=== PATIENT | female | born 1950 | race Caucasian/White ===

== ENCOUNTER 2017-03-12 10:20 | Day surgery (SDC) | payer MEDICARE ==
[2017-03-10 14:16] LABS: ASPARTATE AMINO TRANSFERASE 15 U/L (15-37); BLOOD UREA NITROGEN 15 mg/dL (7-18)
[~2017-03-12] VITALS: Ht 165.1 cm; Wt 150.4 kg
[~2017-03-12 10:20] MED LIST: FLUO10TA PO; LEVO88TA4 PO; LISI-170 PO
[2017-03-12] MEDS ORDERED: LACTATED RINGERS 1,000 ML IV SCH (10:57)
[2017-03-12 11:08] VITALS: BP 170/63
[2017-03-12] MEDS ORDERED: FENTANYL PF 100 MCG/2ML ONE (11:54)
[2017-03-12] MEDS ORDERED: MIDAZOLAM 1 MG/ML, 2ML ONE (11:54)
[2017-03-12] MEDS ORDERED: OXYcodone 5 MG/5 ML ORAL.SOL UDC PO PRN (12:30)
[2017-03-12] MEDS ORDERED: PROMETHAZINE 25 MG/ML, 1ML IV PRN (12:30)
[2017-03-12] MEDS ORDERED: hydrALAzine 20 MG/ML, 1ML IV PRN (12:30)
[2017-03-12] MEDS ORDERED: ONDANSETRON 2MG/ML, 2ML IVPush PRN (12:30)
[2017-03-12] MEDS ORDERED: LABETALOL 5MG/ML, 20ML IV PRN (12:30)
[2017-03-12] MEDS ORDERED: FENTANYL PF 100 MCG/2ML IV PRN (12:30)
[2017-03-12] MEDS ORDERED: ACETAMINOPHEN 325 MG TABLET PO PRN (12:30)
[2017-03-12] MEDS ORDERED: HYDROmorphone 1 MG/ML, 1ML IV PRN (12:30)
[2017-03-12] MEDS ORDERED: ONDANSETRON 2MG/ML, 2ML ONE (12:40)
== END 2017-03-12 14:25 ==
LOC: OUT 10:20
PROVIDERS: ATTEND Internal Medicine
DX: K62.5 Hemorrhage of anus and rectum (principal); I10 Essential (primary) hypertension; E03.9 Hypothyroidism, unspecified; G47.33 Obstructive sleep apnea (adult) (pediatric); E66.01 Morbid (severe) obesity due to excess calories; Z68.43 Body mass index [BMI] 50.0-59.9, adult; Z87.39 Personal history of other diseases of the musculoskeletal system and connective tissue
CPT/HCPCS: 36415; 45378; 80053; 93005; J2250; J2405; J3010; J7120

== ENCOUNTER 2019-09-08 07:56 | Day surgery (SDC) | payer MEDICARE | END 2019-09-08 09:20 | disposition home or self-care (01) | LOC: OUT 07:56 | PROVIDERS: ATTEND Obstetrics & Gynecology | DX: Z01.818 Encounter for other preprocedural examination (principal); Z11.59 Encounter for screening for other viral diseases; N95.0 Postmenopausal bleeding | CPT/HCPCS: 93005; U0001 ==

== ENCOUNTER 2019-09-13 05:19 | Day surgery (SDC) | payer MEDICARE ==
[~2019-09-13] VITALS: Ht 165.1 cm; Wt 159.4 kg
[2019-09-13] MEDS ORDERED: METOPROLOL ER PO (05:41)
[2019-09-13] MEDS ORDERED: LISI1TAB19 PO (05:41)
[2019-09-13] MEDS ORDERED: LACTATED RINGERS 1,000 ML IV SCH (05:57)
[2019-09-13 05:59] VITALS: BP 143/86
[2019-09-13] MEDS ORDERED: LIDOCAINE-MPF 1%, 2ML INFIL ONE (06:00)
[2019-09-13] MEDS ORDERED: CHLORHEXIDINE 15 ML UDC MM ONE (06:00)
[2019-09-13] MEDS ORDERED: LIDOCAINE-MPF 1%, 2ML ONE (06:01)
[2019-09-13] MEDS ORDERED: CHLORHEXIDINE 15 ML UDC ONE (06:02)
[2019-09-13] MEDS ORDERED: OXYTOCIN 10 UNITS/ML, 1ML ONE (06:07)
[2019-09-13] MEDS ORDERED: MISOPROSTOL 200 MCG TABLET ONE (06:07)
[2019-09-13] MEDS ORDERED: METHYLERGONOVINE 0.2 MG/ML IM ONE (06:08)
[2019-09-13] MEDS ORDERED: SILVER NITRATE STICK TP ONE (06:08)
[2019-09-13] MEDS ORDERED: MIDAZOLAM 1 MG/ML, 2ML ONE (06:45)
[2019-09-13] MEDS ORDERED: FENTANYL PF 100 MCG/2ML ONE (06:45)
[2019-09-13] MEDS ORDERED: PROPOFOL 10 MG/ML, 20ML ONE (06:46)
[2019-09-13] MEDS ORDERED: ROCURONIUM 10MG/ML,5ML ONE (06:48)
[2019-09-13 06:49] LABS: ALANINE AMINOTRANSFERASE 18 U/L (12-78); ANION GAP 5 mmol/L (5-15); CALCIUM 8.5 mg/dL (8.5-10.1); CHLORIDE 108 mmol/L (98-107); CREATININE 0.99 mg/dL (0.55-1.02)
[2019-09-13] MEDS ORDERED: SUCCINYLCHOLINE 20 MG/ML, 10ML ONE (06:50)
[2019-09-13 06:51] LABS: ALKALINE PHOSPHATASE 98 U/L (45-117); BILIRUBIN,TOTAL 0.8 mg/dL (0.2-1.0); TOTAL PROTEIN 6.7 g/dL (6.4-8.2)
[2019-09-13] MEDS ORDERED: DEXAMETHASONE 4 MG/ML, 1ML ONE (06:54)
[2019-09-13] MEDS ORDERED: ONDANSETRON 2MG/ML, 2ML ONE (06:54)
[2019-09-13] MEDS ORDERED: CEFAZOLIN 1,000 MG ONE (06:54)
[2019-09-13] MEDS ORDERED: EPHEDRINE 50 MG/ML, 1ML ONE (07:12)
[2019-09-13] MEDS ORDERED: GLYCOPYRROLATE 0.2MG/1ML, 5ML ONE (07:12)
[2019-09-13 07:23] VITALS: BP 143/86
[2019-09-13 07:26] VITALS: BP 143/86
[2019-09-13] MEDS ORDERED: DIPHENHYDRAMINE 50 MG/ML, 1ML IVPush PRN (07:30)
[2019-09-13] MEDS ORDERED: OXYcodone 5 MG/5 ML ORAL.SOL UDC PO PRN (07:30)
[2019-09-13] MEDS ORDERED: PROMETHAZINE 12.5 MG SUPP PR PRN (07:30)
[2019-09-13] MEDS ORDERED: DIAZEPAM 5 MG/ML, 2ML IVPush PRN (07:30)
[2019-09-13] MEDS ORDERED: MIDAZOLAM 1 MG/ML, 2ML IV PRN (07:30)
[2019-09-13] MEDS ORDERED: LABETALOL 5MG/ML, 20ML IV PRN (07:30)
[2019-09-13] MEDS ORDERED: ACETAMINOPHEN 325 MG TABLET PO PRN (07:30)
[2019-09-13] MEDS ORDERED: hydrALAzine 20 MG/ML, 1ML IV PRN (07:30)
[2019-09-13] MEDS ORDERED: PROMETHAZINE 25 MG/ML, 1ML IVPush PRN (07:30)
[2019-09-13] MEDS ORDERED: HYDROmorphone 1 MG/ML, 1ML INJ IVPush PRN (07:30)
[2019-09-13] MEDS ORDERED: EPHEDRINE 50 MG/ML, 1ML IVPush PRN (07:30)
[2019-09-13] MEDS ORDERED: MEPERIDINE/PF 25MG/0.5ML IVPush PRN (07:30)
[2019-09-13] MEDS ORDERED: ALBUTEROL SULFATE 2.5 MG/3 ML NPPB PRN (07:30)
[2019-09-13] MEDS ORDERED: FENTANYL PF 100 MCG/2ML IV PRN (07:30)
== END 2019-09-13 09:30 | disposition home or self-care (01) ==
LOC: OUT 05:19
PROVIDERS: ATTEND Obstetrics & Gynecology
DX: N95.0 Postmenopausal bleeding (principal); N88.2 Stricture and stenosis of cervix uteri; E66.01 Morbid (severe) obesity due to excess calories; I10 Essential (primary) hypertension; E03.9 Hypothyroidism, unspecified; Z79.890 Hormone replacement therapy; Z79.899 Other long term (current) drug therapy
CPT/HCPCS: 36415; 58120; 80053; 88305; J0330; J0690; J1100; J2250; J2405; J2704; J3010; J7120; J2210; J2590